=== PATIENT | female | born 1970 | race Caucasian/White ===

== ENCOUNTER 2017-11-16 16:18 | Emergency (ER) | payer MEDICAID ==
[2017-11-16 16:30] VITALS: BP 132/62
[2017-11-16] MEDS ORDERED: DIPH/PERTUSS(ACELL)/TETANUS VAC/PF 0.5 ML SYR (>=10YO) IM ONE (17:00)
--- NOTE | 2017-11-16 17:02 | ER Document Report ---
ED Extremity Problem, Lower - General Chief Complaint: Knee Pain Stated Complaint: FALL/LEFT KNEE PAIN Time Seen by Provider: 11/16/17 16:39 Mode of Arrival: Ambulatory Information source: Patient TRAVEL OUTSIDE OF THE [place] IN LAST 30 DAYS: No - HPI Patient complains to provider of: Injury, Pain, Swelling Location: Knee Occurred: Other - 5 weeks Where: Outdoors Onset/Duration: Sudden Quality of pain: Achy Severity: Moderate Pain Level: 4 Context: Fell Recent injury: Yes Exacerbated by: Movement, Walking Relieved by: Nothing Notes: Patient is a 47-year-old female presenting to the emergency room today complaining of left knee pain from a fall she sustained approximately 5 weeks ago, states her boot got caught up in her friend's wheelchair causing her to fall to the ground on gravel, landing mostly on the left knee, she had a deep abrasion to the area, she was seen by her primary care provider and had x-rays done shortly after the fall occurred, which she would was told "did not look good", however she is unsure of exactly what the x-ray showed, she had a follow- up appointment with orthopedics today but was unable to make it to that appointment as her appointment with her primary care provider ran late, she has not called to reschedule with orthopedics but is concerned that she continues to have pain, she does note that she did not have an updated tetanus shot when the injury occurred either, and she denies any numbness or tingling, no fevers, no new injury - Related Data Allergies/Adverse Reactions: codeine Allergy (Verified 11/16/17 16:21) Penicillins Allergy (Verified 11/16/17 16:21) Past Medical History - Social History Smoking Status: Unknown if Ever Smoked Family History: Reviewed & Not Pertinent Review of Systems - Review of Systems Constitutional: No symptoms reported EENT: No symptoms reported Cardiovascular: No symptoms reported Respiratory: No symptoms reported Gastrointestinal: No symptoms reported Genitourinary: No symptoms reported Female Genitourinary: No symptoms reported Musculoskeletal: See HPI Skin: No symptoms reported Hematologic/Lymphatic: No symptoms reported Neurological/Psychological: No symptoms reported -: Yes All other systems reviewed and negative Physical Exam - Vital signs Vitals: Temp Pulse Resp BP Pulse Ox 98.2 F 66 16 132/62 H 100 11/16/17 16:29 11/16/17 16:29 11/16/17 16:29 11/16/17 16:29 11/16/17 16:29 - Notes Notes: - General General appearance: Appears well, Alert In distress: None - HEENT Head: Normocephalic, Atraumatic Eyes: Normal Conjunctiva: Normal Extraocular movements intact: Yes Eyelashes: Normal Pupils: PERRL - Respiratory Respiratory status: No respiratory distress - Cardiovascular Rhythm: Regular - Abdominal Inspection: Normal - Back Back: Normal - Extremities General upper extremity: Normal inspection General lower extremity: Left knee with mild swelling, tender to palpate directly over the patella, no deformity, there is a 1 cm scabbed abrasion to the left lower portion of the knee adjacent to the patella, there is mild surrounding erythema with no fluctuance, distal sensation and motor is intact with 2+ DP pulses - Neurological Neuro grossly intact: Yes Orientation: AAOx4 Irving Coma Scale Eye Opening: Spontaneous [place] Coma Scale Verbal: Oriented Irving Coma Scale Motor: Obeys Commands Irving Coma Scale Total: 15 - Psychological Associated symptoms: Normal affect, Normal mood - Skin Skin Temperature: Warm Skin Moisture: Dry Skin Color: Normal Course - Re-evaluation Re-evalutation: 11/16/17 17:08 Patient is a 47-year-old female with continued left knee pain after an injury since she sustained 5 weeks ago, she unfortunately missed an appointment with orthopedics today and has not yet rescheduled this appointment, but continues to have pain, she did have x-rays performed by her primary care provider since the fall, she has been ambulating on it for the past 5 weeks and has an Red wrap in place on initial evaluation, physical exam findings are unremarkable except for some reported pain with palpation, as well as pain with range of motion testing and a small scabbed abrasion to the knee, I discussed the possibility of repeating x-rays today which patient agreed were unnecessary, she was advised to call the orthopedic surgeon's office immediately to reschedule her appointment, will be given a prescription for a small amount of pain medication and instructed to decrease ambulation, ice and elevate or return if symptoms worsen, patient acknowledges understanding and agreement with this plan - Vital Signs Vital signs: Temp Pulse Resp BP Pulse Ox 98.2 F 66 16 132/62 H 100 11/16/17 16:29 11/16/17 16:29 11/16/17 16:29 11/16/17 16:29 11/16/17 16:29 Discharge - Discharge Clinical Impression: Left knee pain Qualifiers: Chronicity: chronic Qualified Code(s): M25.562 - Pain in left knee Condition: Stable Disposition: HOME, SELF-CARE Instructions: Ice & Elevation ([facility]), Suspected Internal Knee Injury ([facility]), Oral Narcotic Medication ([facility]), Sprained Knee ([facility]) Additional Instructions: Follow up with your primary care provider and an orthopedic surgeon in one to 2 days. Return to the emergency room immediately if symptoms worsen or any additional concerns. Ice and elevate the affected extremity. Limit weightbearing. Prescriptions: Hydrocodone/Acetaminophen [Hydrocodon-Acetaminophen 5-325] 1 each PO Q6 #14 tablet Referrals: YE CISNEROS PA-C [Primary Care Provider] - Follow up as needed IZABELA ANSARI MD [ACTIVE STAFF] - Follow up as needed
== END 2017-11-16 17:20 | disposition home or self-care (01) ==
LOC: ER 16:18
DX: M25.562 Pain in left knee (principal); W19.XXXA Unspecified fall, initial encounter; Z88.6 Allergy status to analgesic agent; Z88.0 Allergy status to penicillin; Z23 Encounter for immunization
CPT/HCPCS: 90471; 90715; 99283

== ENCOUNTER 2020-02-01 10:15 | Emergency (ER) | payer MEDICAID ==
[2020-02-01] MEDS ORDERED: OXYCODONE-ACETAMINOPHEN 5-325 MG TABLET PO ONE (11:27)
--- NOTE | 2020-02-01 11:32 | ER Document Report ---
ED General - General Chief Complaint: Sore Throat Stated Complaint: FEVER/VOMITING Time Seen by Provider: 02/01/20 10:31 TRAVEL OUTSIDE OF THE [place] IN LAST 30 DAYS: No - HPI Notes: Chief complaint: Sore throat and cough HPI: 49-year-old female 2 pack/day cigarette smoker with history of COPD and obstructive sleep apnea with use of nocturnal CPAP comes in now with 2 days history of increased cough and severe sore throat. Subjective fever at home. Cough is productive of green sputum. Denies dyspnea at this time. Denies nausea vomiting. Patient says she believes she previously had COVID-19 approximately a month ago. She treated herself at home and did not seek medical attention but said she used her CPAP continuously for a 48-hour. And felt very short of breath during that time. - Related Data Allergies/Adverse Reactions: codeine Allergy (Verified 11/16/17 16:21) Penicillins Allergy (Verified 11/16/17 16:21) Home Medications: tylenl arthritis, folic acid, paxil, omeprazole, methamazole, plaquenil, mobic Past Medical History - General Information source: [facility] - Social History Smoking Status: Current Every Day Smoker Chew tobacco use (# tins/day): No Frequency of alcohol use: None Drug Abuse: None Family History: Reviewed & Not Pertinent Patient has homicidal ideation: No Pulmonary Medical History: Reports: Hx COPD, Hx Sleep Apnea Renal/ Medical History: Denies: Hx Peritoneal Dialysis Musculoskeletal Medical History: Reports Hx Arthritis - rheumatoid, Reports Other - Recently diagnosed with RA Past Surgical History: Reports: Hx Cholecystectomy Review of Systems - Review of Systems Notes: Constitutional: Subjective fever. HENT: Severe sore throat. Eyes: Negative for visual changes. Cardiovascular: Negative for chest pain. Respiratory: As per HPI. Gastrointestinal: Negative for abdominal pain, vomiting or diarrhea. Genitourinary: Negative for dysuria. Musculoskeletal: Chronic diffuse joint pain. Skin: Negative for rash. Neurological: Negative for headaches, weakness or numbness. 10 point ROS negative except as marked above and in HPI. Physical Exam - Vital signs Vitals: Temp Pulse Resp BP Pulse Ox 98.4 F 86 18 144/78 H 97 02/01/20 10:45 02/01/20 10:45 02/01/20 10:45 02/01/20 10:45 02/01/20 10:45 - Notes Notes: GENERAL: Middle-age female with deep rattling cough otherwise appearing in no acute distress. SKIN: Good turgor no rashes. HEAD: Normocephalic atraumatic. EYES: PERRLA. EOMI. Conjunctivae and sclerae clear. EARS: CANALS AND TMS CLEAR. NOSE: CLEAR. MOUTH: Moist mucosa. Good dentition. No stridor or edema. No drooling. Throat: Pharyngeal erythema and swelling without exudate. NECK: Supple. No masses or thyromegaly. No adenopathy. Carotids 2+ without bruits. No JVD. BACK: Symmetrical without tenderness. CHEST: Rattling cough. Coarse rales right base. Respirations unlabored. Breath sounds clear and symmetrical. HEART: Regular rhythm. No murmur gallop or rub. ABDOMEN: Soft nontender without masses, organomegaly or rebound. Bowel sounds normally active. No bruits. GENITALIA: Deferred. EXTREMITIES: No edema. No calf tenderness. Cap refill less than 1.5 seconds. Dorsalis pedis and posterior tibial pulses 3+ and symmetrical. NEUROLOGICAL: GCS 15. Alert and oriented x3. Normal gait. Fluent speech. Cranial nerves II through XII intact. Sensorimotor and cerebellar normal. Normal tone. PSYCHIATRIC: Appropriate affect. Course - Re-evaluation Re-evalutation: 02/01/20 12:27 Patient is hemodynamically stable and oxygenating normally. She has minimal patchy bibasilar infiltrates on chest x-ray. She is a heavy cigarette smoker. She is stable for outpatient management. She is penicillin allergic. I will place her on oral Levaquin and suggest she follow-up with her doctor with an 24 to 48 hours. I am also going to place her on some oral steroid and a metered- dose inhaler. Again strongly encouraged to stop smoking. - Vital Signs Vital signs: Temp Pulse Resp BP Pulse Ox 98.4 F 86 18 144/78 H 97 02/01/20 10:45 02/01/20 10:45 02/01/20 10:45 02/01/20 10:45 02/01/20 10:45 - Diagnostic Test Radiology reviewed: Reports reviewed - Portable chest x-ray per radiologist: Patchy peripheral infiltrates both bases Discharge - Discharge Clinical Impression: Cigarette smoker Pneumonia Qualifiers: Pneumonia type: due to unspecified organism Laterality: unspecified laterality Lung location: unspecified part of lung Qualified Code(s): J18.9 - Pneumonia, unspecified organism Condition: Stable Disposition: HOME, SELF-CARE Additional Instructions: Stop smoking. Take prescribed medications as instructed. Follow-up with your primary care physician within the next 48 hours. Return here as needed for new or worsening symptoms: Increasing shortness of breath Pain that is worsening or unimproved Uncontrolled vomiting High fever or shaking chills Overall worsening Prescriptions: Prednisone [Deltasone 20 mg Tablet] 2 tab PO DAILY 5 Days tablet Levofloxacin [Levaquin 750 mg Tablet] 750 mg PO DAILY #5 tablet Oxycodone HCl/Acetaminophen [Percocet 5-325 mg Tablet] 1 - 2 tab PO Q4H PRN #15 tablet PRN Reason: Albuterol Sulfate [Proair HFA Inhalation Aerosol 8.5 gm MDI] 2 puff IH Q4H PRN #1 mdi PRN Reason: Forms: Smoking Cessation Education Referrals: [facility] [Provider Group] - Follow up as needed
--- NOTE | 2020-02-01 12:20 | RADIOLOGY REPORT (SQ) ---
EXAM DESCRIPTION: CHEST SINGLE VIEW IMAGES COMPLETED DATE/TIME: 02/01/2020 11:01 am REASON FOR STUDY: cough, fever COMPARISON: None. EXAM PARAMETERS: NUMBER OF VIEWS: One view. TECHNIQUE: Single frontal radiographic view of the chest acquired. RADIATION DOSE: NA LIMITATIONS: None. FINDINGS: LUNGS AND PLEURA: Mild patchy peripheral and basilar opacities. No focal confluent consol idation. No pleural effusion or pneumothorax. MEDIASTINUM AND HILAR STRUCTURES: No masses. Contour normal. HEART AND VASCULAR STRUCTURES: Heart normal in size. Normal vasculature. BONES: No acute findings. HARDWARE: None in the chest. OTHER: No other significant finding. IMPRESSION: Mild patchy peripheral and basilar predominant opacities may represent infectious/ infla mmatory process or atelectasis. TECHNICAL DOCUMENTATION: JOB ID: [id number] 2010 [employer]- All Rights Reserved Reading location - IP/workstation name: [email or web address]
[2020-02-01] MEDS ORDERED: LEVOFLOXACIN 750 MG TABLET PO ONE (12:31)
[2020-02-01 12:57] VITALS: BP 136/72
== END 2020-02-01 12:56 | disposition home or self-care (01) ==
LOC: ER 10:15
DX: J18.9 Pneumonia, unspecified organism (principal); J02.9 Acute pharyngitis, unspecified; R50.9 Fever, unspecified; R11.10 Vomiting, unspecified; Z79.899 Other long term (current) drug therapy; Z88.0 Allergy status to penicillin; Z88.8 Allergy status to other drugs, medicaments and biological substances; F17.200 Nicotine dependence, unspecified, uncomplicated; J44.9 Chronic obstructive pulmonary disease, unspecified
CPT/HCPCS: 99283; 71045; J3490

== ENCOUNTER 2020-02-28 09:24 | Emergency (ER) | payer MEDICAID ==
--- NOTE | 2020-02-28 10:49 | ER Document Report ---
ED ENT - General Chief Complaint: Sore Throat Stated Complaint: SORE THROAT Time Seen by Provider: 02/28/20 10:06 Notes: CHIEF COMPLAINT: Sore throat for a month HPI: 49-year-old female presenting to the emergency department complaining of sore throat and painful swallowing for 1 month. Patient states she was seen a month ago diagnosed with pneumonia placed on Levaquin. Had sore throat at that time does use CPAP repeatedly. Patient believes she had COVID 2 months ago. She states she had severe cough and shortness of breath but continue to use her CPAP. Patient still does continue to use her CPAP. Patient has had telehealth visits with her doctor was placed on azithromycin 2 weeks ago without resolution of her throat pain. She started on clindamycin 2 days ago without resolution of her pain did not call her PCP back to obtain pain management ROS: See HPI - all other systems were reviewed and are otherwise negative Constitutional: no fever Eyes: no drainage, no blurred vision ENT: no runny nose, + sore throat Cardiovascular: no chest pain Resp: no SOB, + cough GI: no vomiting, no diarrhea, no abdominal pain : no dysuria Integumentary: no rash Allergy: no hives Musculoskeletal: no extremity pain or swelling Neurological: no numbness/tingling, no weakness MEDICATIONS: I agree with the patient medications as charted by the RN. ALLERGIES: I agree with the allergies as charted by the RN. PAST MEDICAL HISTORY/PAST SURGICAL HISTORY: Reviewed and agree as charted by RN. SOCIAL HISTORY: Reviewed and agree as charted by RN. FAMILY HISTORY: No significant familial comorbid conditions directly related to patient complaint EXAM: Reviewed vital signs as charted by RN. CONSTITUTIONAL: Alert and oriented and responds appropriately to questions. Well-appearing; well-nourished HEAD: Normocephalic; atraumatic EYES: PERRL; Conjunctivae clear, sclerae non-icteric ENT: normal nose; no rhinorrhea; moist mucous membranes; mild pharyngeal erythema with exudate, phonation normal. Uvula is midline. No soft palate swelling NECK: Supple without meningismus; non-tender; no cervical lymphadenopathy, no masses CARD: RRR; no murmurs, no clicks, no rubs, no gallops; symmetric distal pulses RESP: Normal chest excursion without splinting or tachypnea; breath sounds clear and equal bilaterally; + wheezes, no rhonchi, no rales, pulse oximetry 96% on room air not hypoxic ABD/GI: Normal bowel sounds; non-distended; soft, non-tender, no rebound, no guarding; no palpable organomegaly or masses. BACK: The back appears normal and is non-tender to palpation, there is no CVA tenderness EXT: Normal ROM in all joints; non-tender to palpation; no cyanosis, no effusions, no edema SKIN: Normal color for age and race; warm; dry; good turgor; no acute lesions noted NEURO: Moves all extremities equally; Motor and sensory function intact PSYCH: The patient's mood and manner are appropriate. Grooming and personal hygiene are appropriate. MDM: 49-year-old female presenting for sore throat. State multiple people in t he household have been sick with possible strep throat. Has only had telehealth visits with her PCP so has not had any further testing. I did review the patient's charts. She had patchy infiltrates in the bilateral lower lobes 1 month ago when she was seen here and placed on Levaquin. She declines repeat chest x-ray to evaluate for improvement of symptoms. States she still has a slight cough but continues to smoke and continues to use her CPAP. She did not have COVID testing last month or since then. She has finished a course of azithromycin which would have covered strep throat she is now on day 2 of clindamycin which would cover strep throat. Will obtain rapid strep and Monospot. TRAVEL OUTSIDE OF THE [place] IN LAST 30 DAYS: No - Related Data Allergies/Adverse Reactions: codeine Allergy (Verified 11/16/17 16:21) Penicillins Allergy (Verified 11/16/17 16:21) Past Medical History - Social History Smoking Status: Current Every Day Smoker Frequency of alcohol use: None Drug Abuse: None Family History: Reviewed & Not Pertinent Patient has homicidal ideation: No Pulmonary Medical History: Reports: Hx COPD, Hx Sleep Apnea Renal/ Medical History: Denies: Hx Peritoneal Dialysis Musculoskeletal Medical History: Reports Hx Arthritis - rheumatoid Past Surgical History: Reports: Hx Cholecystectomy Physical Exam - Vital signs Vitals: Temp 98 F 02/28/20 09:30 Course - Re-evaluation Re-evalutation: 02/28/20 11:35 Rapid strep and Monospot are both negative. Patient may continue her clindamyc in. We will give her Decadron here as well for pain and inflammation she is to follow-up with PCP 02/28/20 11:35 She is to be considered a person under investigation. She is aware of this - Vital Signs Vital signs: Temp Pulse Resp BP Pulse Ox 98.0 F 72 18 181/79 H 100 02/28/20 09:47 02/28/20 09:47 02/28/20 09:47 02/28/20 09:47 02/28/20 09:47 Discharge - Discharge Clinical Impression: Throat pain Condition: Stable Disposition: HOME, SELF-CARE Additional Instructions: Your rapid strep and Monospot are both negative. Continue the clindamycin as previously prescribed by your PCP. You have been given Decadron today to help with the inflammation in the throat which should help with your discomfort. Make sure you are gargling salt water 2-3 times daily. Make sure that you are cleaning your CPAP unit when using. Contact your primary care provider to arrange close follow-up for reevaluation of your symptoms. You are considered a person under investigation at this time quarantine at home for 14 days or until you have a negative test
[2020-02-28] MEDS ORDERED: DEXAMETHASONE 4 MG TABLET PO ONE (11:36)
[2020-02-28 12:04] VITALS: BP 168/80
== END 2020-02-28 12:04 | disposition home or self-care (01) ==
LOC: ER 09:24
DX: R07.0 Pain in throat (principal); R13.10 Dysphagia, unspecified; Z88.8 Allergy status to other drugs, medicaments and biological substances; Z88.0 Allergy status to penicillin; F17.200 Nicotine dependence, unspecified, uncomplicated; J44.9 Chronic obstructive pulmonary disease, unspecified; Z20.828 Contact with and (suspected) exposure to other viral communicable diseases
CPT/HCPCS: 99283; 36415; 87070; 87880; 87635; 86308; J3490; C9803; J8540

== ENCOUNTER → 2020-03-30 | Outpatient (CLI) | payer MEDICAID ==
--- NOTE | 2020-03-30 11:55 | RADIOLOGY REPORT (SQ) ---
EXAM DESCRIPTION: VENOUS UNILATERAL LOWER IMAGES COMPLETED DATE/TIME: 03/30/2020 11:44 am REASON FOR STUDY: RLE PAIN M79.604 PAIN IN RIGHT LEG COMPARISON: None. TECHNIQUE: Dynamic and static osman scale and color images acquired of the right leg venous system. S elected spectral images acquired with additional compression and augmentation maneuvers. The contrala teral common femoral vein and saphenofemoral junction were also imaged. Images stored on PACS. LIMITATIONS: None. FINDINGS: COMMON FEMORAL: Normal phasicity, compression and augmentation. No visualized echogenic ma terial on osman scale. No defects on color images. FEMORAL: Normal compression and augmentation. No visualized echogenic material on osman scale. No defe cts on color images. POPLITEAL: Normal compression, augmentation. No visualized echogenic material on osman scale. No defec ts on color images. CALF VESSELS: Normal compression, augmentation. No visualized echogenic material on osman scale. No de fects on color images. GSV and SSV: Normal compression, augmentation. No visualized echogenic material on osman scale. No def ects on color images. ANY DEEP VENOUS INSUFFICIENCY: Not evaluated. ANY EVIDENCE OF POPLITEAL CYST: No. OTHER: No other significant finding. CONTRALATERAL COMMON FEMORAL VEIN: Normal phasicity, compression and augmentation. No visualized echogenic material on osman scale. No de fects on color images. IMPRESSION: 1. NO EVIDENCE OF DVT OR SVT IN THE RIGHT LEG. TECHNICAL DOCUMENTATION: JOB ID: [id number] 2010 [employer]- All Rights Reserved Reading location - IP/workstation name: [email or web address]
== END ==
LOC: SP 10:37
PROVIDERS: ATTEND Registered Nurse
DX: M79.604 Pain in right leg (principal)
CPT/HCPCS: 93971